=== PATIENT | female | born 1950 | race Two or more races ===

== ENCOUNTER 2022-01-02 10:35 | Inpatient (IN) | payer OTHER ==
[~2022-01-02] VITALS: Ht 154.9 cm; Wt 64.4 kg
[2022-01-03] MEDS ORDERED: ZANAF PO (15:20)
[2022-01-03] MEDS ORDERED: DEPAKOTE ER500 MG PO (15:20)
[2022-01-03] MEDS ORDERED: ZANAFLEX4 M1 PO (15:21)
[2022-01-03] MEDS ORDERED: GABAPEN PO (15:21)
[2022-01-03] MEDS ORDERED: JANUVIA100 MG PO (15:22)
[2022-01-03] MEDS ORDERED: CRESTOR40 MG PO (15:22)
[2022-01-03] MEDS ORDERED: ACCUPRIL10 MG PO (15:22)
[2022-01-03] MEDS ORDERED: FOLIC A PO (15:23)
[2022-01-05] MEDS ORDERED: COLACE100 MG PO (07:54)
[2022-01-05] MEDS ORDERED: MEDROLPACK PO (07:54)
[2022-01-05] MEDS ORDERED: PERCOCET 5-3251 EACH PO (07:54)
== END 2022-01-06 11:29 | disposition home or self-care (01) | DRG 473 ==
LOC: O/R 01-05 05:21 → PED 01-05 05:21 → PICU 01-05 11:45 → SURH 01-05 11:45 → PED 01-06 11:29
PROVIDERS: ADMIT Orthopaedic Surgery Orthopaedic Surgery of the Spine; ATTEND Orthopaedic Surgery Orthopaedic Surgery of the Spine
PROC: 0RT30ZZ Resection of Cervical Vertebral Disc, Open Approach (ICD-10-PCS; 2022-01-05)
PROC: 0RG20A0 Fusion of 2 or more Cervical Vertebral Joints with Interbody Fusion Device, Anterior Approach, Anterior Column, Open Approach (ICD-10-PCS; principal; 2022-01-05 18:15)
DX: M50.022 Cervical disc disorder at C5-C6 level with myelopathy (principal); M48.02 Spinal stenosis, cervical region; I10 Essential (primary) hypertension

== ENCOUNTER 2023-07-04 13:10 | Inpatient (IN) | payer OTHER ==
[~2023-07-04 13:10] MED LIST: ACCUPRIL10 MG PO; COLACE100 MG PO; CRESTOR40 MG PO; DEPAKOTE ER500 MG PO; FOLIC A PO; GABAPEN PO; JANUVIA100 MG PO; MEDROLPACK PO; PERCOCET 5-3251 EACH PO; ZANAF PO; ZANAFLEX4 M1 PO
[2023-07-04] MEDS ORDERED: XANAX (14:26)
[2023-07-04] MEDS ORDERED: DEPAKOTE (14:26)
[2023-07-04] MEDS ORDERED: JANUVIA (14:26)
[2023-07-04] MEDS ORDERED: TOPROL (14:27)
[2023-07-04] MEDS ORDERED: PERCOCET (14:27)
[2023-07-04] MEDS ORDERED: SYNTHROID (14:27)
[2023-07-09] MEDS ORDERED: AMOX-CLAV 875-1 EACH PO ×2 (07:44)
[2023-07-09] MEDS ORDERED: PERCOCET 5-3251 EACH PO (07:44)
[2023-07-09] MEDS ORDERED: MEDROLPACK PO (07:44)
[2023-07-09] MEDS ORDERED: COLACE100 MG PO (07:45)
[2023-07-09] MEDS ORDERED: NEURONTIN800 MG PO ×2 (07:45)
[2023-07-09] MEDS ORDERED: ENALAPRILAT DIHYDRATE 1.25 MG/ML VIAL IV PRN (07:45)
[2023-07-09] MEDS ORDERED: 0.9 % SODIUM CHLORIDE 1,000 ML IV SCH (07:45)
[2023-07-09] MEDS ORDERED: PROMETHAZINE HCL 50 MG/ML AMPUL IM PRN (07:45)
[2023-07-09] MEDS ORDERED: GABAPENTIN100 M2 PO ×2 (07:45)
[2023-07-09] MEDS ORDERED: MORPHINE SULFATE 4 MG,MORPHINE SULFATE 2 MG IV SCH (09:00)
[2023-07-09] MEDS ORDERED: DOCUSATE SODIUM 100MG CAP PO SCH (09:00)
[2023-07-09] MEDS ORDERED: FAMOtidine 20 MG TABLET PO SCH (09:00)
[2023-07-09] MEDS ORDERED: METHYLPREDNISOLONE SOD SUCC 125 MG VIAL IV SCH (09:00)
[2023-07-09] MEDS ORDERED: CEFAZOLIN SODIUM 1,000 MG in 0.9 % SODIUM CHLORIDE 50 ML IV SCH (09:00)
[2023-07-09] MEDS ORDERED: VANCOMYCIN HCL 1,000 MG VIAL IV SCH (09:00)
[2023-07-09] MEDS ORDERED: CEFAZOLIN SODIUM 1,000 MG VIAL ONE ×2 (11:50→16:36)
[2023-07-09] MEDS ORDERED: VANCOMYCIN HCL 1,000 MG VIAL ONE ×2 (11:51→12:42)
[2023-07-09] MEDS ORDERED: METHYLPREDNISOLONE SOD SUCC 125 MG VIAL ONE ×2 (12:41→16:36)
[2023-07-09] MEDS ORDERED: METHYLPREDNISOLONE ACETATE 80 MG/ML VIAL ONE ×2 (12:42→13:36)
[2023-07-09] MEDS ORDERED: METHYLPREDNISOLONE SOD SUCC 125 MG VIAL IV ONE ×2 (14:00)
[2023-07-09] MEDS ORDERED: CEFAZOLIN SODIUM 1,000 MG VIAL IV ONE (14:00)
[2023-07-09] MEDS ORDERED: VANCOMYCIN HCL 1,000 MG VIAL IV ONE ×2 (14:00)
[2023-07-09] MEDS ORDERED: METHYLPREDNISOLONE ACETATE 80 MG/ML VIAL IJ ONE ×2 (14:00)
[2023-07-09] MEDS ORDERED: GABAPENTIN 800 MG TABLET PO SCH (21:00)
[2023-07-10] MEDS ORDERED: SODIUM CHLORIDE 0.45 % 1,000 ML IV SCH
[2023-07-10] MEDS ORDERED: LEVOTHYROXINE SODIUM 50 MCG TABLET PO SCH (06:00)
[2023-07-10] MEDS ORDERED: OxyCODONE HCL/APAP UD (PERCOCET) PO PRN (06:01)
[2023-07-10 06:34] LABS: HEMATOCRIT 36.9 % (36.0-45.00); HEMOGLOBIN 12.8 g/dL (12.0-15.00); MEAN CELL VOLUME 89.8 fL (80.00-100.00); MEAN CORPUSCULAR HEMOGLOBIN 31.2 pg (27.00-32.0); MEAN CORPUSCULAR HGB CONC 34.7 g/dl (32.0-36.0); PLATELET COUNT 185 K/uL (150-450); RED BLOOD COUNT 4.11 M/uL (4.00-6.00); RED CELL DISTRIBUTION WIDTH 13.5 % (11.5-14.5)
[2023-07-10 07:29] LABS: CALCIUM 8.7 mg/dL (8.5-10.1); CREATININE SERUM 0.7 mg/dL (0.55-1.02); GFR 82.25; POTASSIUM 4.04 mEq/L (3.5-5.1)
[2023-07-10] MEDS ORDERED: DIVALPROEX SODIUM 250 MG TABLET.DR PO SCH (09:00)
[2023-07-10] MEDS ORDERED: METOPROLOL SUCCINATE 50 MG TAB.SR.24H PO SCH (09:00)
[2023-07-10] MEDS ORDERED: TAMSULOSIN HCL 0.4 MG CAP PO SCH (09:00)
[2023-07-10] MEDS ORDERED: LOSARTAN POTASSIUM 25 MG TABLET PO SCH (09:00)
[2023-07-10] MEDS ORDERED: TRAZODONE HCL 50 MG TABLET PO SCH (21:00)
[2023-07-16] MEDS ORDERED: ZESTRIL5 MG PO (16:07)
[2023-07-16] MEDS ORDERED: ACETAMINOPHEN500 M1 PO (16:08)
[2023-07-16] MEDS ORDERED: RAYOS5 MG PO (16:09)
[2023-07-16] MEDS ORDERED: ZANAFLEX4 M1 PO (16:11)
[2023-07-16] MEDS ORDERED: CRESTOR40 MG PO (16:16)
== END 2023-07-11 15:31 | DRG 455 ==
LOC: O/R 07-09 08:43 → SURH 07-09 13:09 → SURG 07-09 15:56 → SURH 07-09 17:25
PROVIDERS: ADMIT Orthopaedic Surgery Orthopaedic Surgery of the Spine; ATTEND Orthopaedic Surgery Orthopaedic Surgery of the Spine
PROC: 0SG1071 Fusion of 2 or more Lumbar Vertebral Joints with Autologous Tissue Substitute, Posterior Approach, Posterior Column, Open Approach (ICD-10-PCS; 2023-07-09)
PROC: 0ST20ZZ Resection of Lumbar Vertebral Disc, Open Approach (ICD-10-PCS; 2023-07-09)
PROC: 0QB30ZZ Excision of Left Pelvic Bone, Open Approach (ICD-10-PCS; 2023-07-09)
PROC: 07DR0ZZ Extraction of Iliac Bone Marrow, Open Approach (ICD-10-PCS; 2023-07-09)
PROC: 4A1104G Monitoring of Peripheral Nervous Electrical Activity, Intraoperative, Open Approach (ICD-10-PCS; 2023-07-09)
PROC: 4A12X4Z Monitoring of Cardiac Electrical Activity, External Approach (ICD-10-PCS; 2023-07-09)
PROC: XRGC0R7 Fusion of 2 or more Lumbar Vertebral Joints using Custom-Made Anatomically Designed Interbody Fusion Device, Open Approach, New Technology Group 7 (ICD-10-PCS; principal; 2023-07-09 13:30)
DX: M43.16 Spondylolisthesis, lumbar region (principal); M48.062 Spinal stenosis, lumbar region with neurogenic claudication; I10 Essential (primary) hypertension; E11.9 Type 2 diabetes mellitus without complications; E03.9 Hypothyroidism, unspecified

== ENCOUNTER → 2023-07-16 | Emergency (ER) | payer OTHER ==
[~2023-07-16] VITALS: Ht 154.9 cm; Wt 68.9 kg
[~2023-07-16] MED LIST changes: +ACETAMINOPHEN500 M1 PO; +AMOX-CLAV 875-1 EACH PO; +DEPAKOTE; +GABAPENTIN100 M2 PO; +JANUVIA; +NEURONTIN800 MG PO; +OxyCODONE HCL/APAP UD (PERCOCET) PO ONE; +PERCOCET; +RAYOS5 MG PO; +SYNTHROID; +TOPROL; +XANAX; +ZESTRIL5 MG PO
[2023-07-16 16:13] LABS: HEMATOCRIT 35.8 % (36.0-45.00); HEMOGLOBIN 11.8 g/dL (12.0-15.00); MEAN CORPUSCULAR HEMOGLOBIN 30.1 pg (27.00-32.0); MEAN CORPUSCULAR HGB CONC 33.1 g/dl (32.0-36.0); PLATELET COUNT 203 K/uL (150-450); RED BLOOD COUNT 3.93 M/uL (4.00-6.00); RED CELL DISTRIBUTION WIDTH 13.7 % (11.5-14.5)
[2023-07-16 16:39] LABS: URINE APPEARANCE Clear; URINE BILIRRUBIN Negative (NEGATIVE); URINE BLOOD Negative; URINE COLOR Yellow; URINE GLUCOSE Negative (NEGATIVE); URINE LEUKOCYTE Negative; URINE NITRATE Negative; URINE PROTEIN Negative (NEGATIVE)
[2023-07-16 16:43] LABS: URINE RBC 28.8 uL (0.0-20.8); URINE WBC 1.8 uL (0.0-23.2)
[2023-07-16 16:47] LABS: ALBUMIN 2.9 gm/dL (3.4-5.0); BILIRUBIN TOTAL 0.4 mg/dL (0.3-1.2); CREATININE SERUM 0.82 mg/dL (0.55-1.02); GFR 68.53; POTASSIUM 4.9 mEq/L (3.5-5.1); TOTAL PROTEIN 6.9 gm/dL (6.4-8.2)
[2023-07-16 17:06] LABS: URINE BACTERIA 3.7 uL (0.0-1933); URINE EPITHELIAL CELLS 1.3 uL (0.0-38.8)
== END | disposition left against medical advice (07) ==
LOC: ER 14:35
PROVIDERS: General Practice
DX: G45.8 Other transient cerebral ischemic attacks and related syndromes (principal); R41.0 Disorientation, unspecified; I10 Essential (primary) hypertension; E11.9 Type 2 diabetes mellitus without complications; Z91.048 Other nonmedicinal substance allergy status; Z79.84 Long term (current) use of oral hypoglycemic drugs

== ENCOUNTER 2023-07-19 10:56 | Inpatient (IN) | payer OTHER ==
[~2023-07-19] VITALS: Ht 154.9 cm; Wt 68.9 kg
[~2023-07-19 10:56] MED LIST changes: -OxyCODONE HCL/APAP UD (PERCOCET) PO ONE
[2023-07-19] MEDS ORDERED: GABAPENTIN800 M1 (11:11)
[2023-07-19 12:54] LABS: HEMOGLOBIN 12.2 g/dL (12.0-15.00); MEAN CELL VOLUME 91.1 fL (80.00-100.00); MEAN CORPUSCULAR HEMOGLOBIN 30.9 pg (27.00-32.0); MEAN CORPUSCULAR HGB CONC 33.9 g/dl (32.0-36.0); PLATELET COUNT 204 K/uL (150-450); RED BLOOD COUNT 3.95 M/uL (4.00-6.00); RED CELL DISTRIBUTION WIDTH 13.9 % (11.5-14.5)
[2023-07-19 13:26] LABS: proBNP 9 pg/mL (0-106.6)
[2023-07-19 13:27] LABS: TROPONIN I hs < 3.0 PG/ML (42.2-82.3)
[2023-07-19 13:28] LABS: ALBUMIN 3.1 gm/dL (3.4-5.0); BILIRUBIN TOTAL 0.54 mg/dL (0.3-1.2); CALCIUM 8.9 mg/dL (8.5-10.1); CREATININE SERUM 0.72 mg/dL (0.55-1.02); GFR 79.4; GLOBULINA 3.9 G/DL (2.4-3.5); POTASSIUM 4.01 mEq/L (3.5-5.1)
[2023-07-19 15:07] LABS: PH,URINE 7.5 (5.0-8.0); URINE APPEARANCE Turbid; URINE BILIRRUBIN Negative (NEGATIVE); URINE BLOOD Small; URINE COLOR Yellow; URINE GLUCOSE Negative (NEGATIVE); URINE LEUKOCYTE Large; URINE NITRATE Positive; URINE PROTEIN 30 (NEGATIVE); URINE UROBILINOGEN 0.2 E.U./dl
[2023-07-19 15:11] LABS: URINE EPITHELIAL CELLS 3.4 uL (0.0-38.8); URINE RBC 28.1 uL (0.0-20.8)
[2023-07-19 15:31] LABS: URINE WBC > 5548.3 uL (0.0-23.2)
[2023-07-19 15:32] LABS: URINE BACTERIA > 9821.2 uL (0.0-1933)
[2023-07-19] MEDS ORDERED: OxyCODONE HCL/APAP UD (PERCOCET) PO ONE (17:15)
[2023-07-19] MEDS ORDERED: CEFTRIAXONE SODIUM 2,000 MG VIAL IV ONE (17:15)
[2023-07-19] MEDS ORDERED: 0.9 % SODIUM CHLORIDE 1,000 ML IV SCH (18:45)
[2023-07-19] MEDS ORDERED: ACETAMINOPHEN 500 MG GEL..CAP PO PRN (18:45)
[2023-07-19] MEDS ORDERED: ONDANSETRON HCL 4 MG in 0.9 % SODIUM CHLORIDE 50 ML IV PRN (18:45)
[2023-07-19 19:33] LABS: INR < 0.93; PARTIAL THROMBOPLASTIN TIME 26.4 SECONDS (22.0-34.0); PROTHROMBIN TIME 9.8 SECONDS (9.0-11.5)
[2023-07-19] MEDS ORDERED: TRAZODONE HCL 50 MG TABLET PO SCH (21:00)
[2023-07-19] MEDS ORDERED: ALPRAzolam 0.5 MG TABLET PO SCH (21:00)
[2023-07-20] MEDS ORDERED: ENALAPRILAT DIHYDRATE 1.25 MG/ML VIAL IV SCH
[2023-07-20] MEDS ORDERED: LEVOTHYROXINE SODIUM 100 MCG TABLET PO SCH (06:00)
[2023-07-20] MEDS ORDERED: DIVALPROEX SODIUM 500 MG TABLET.DR PO SCH (09:00)
[2023-07-20] MEDS ORDERED: CEFTRIAXONE SODIUM 2,000 MG in 0.9 % SODIUM CHLORIDE 100 ML IV SCH (09:00)
[2023-07-20] MEDS ORDERED: ENOXAPARIN SODIUM 40 MG/0.4 ML SYRINGE SUBCUTANEO SCH (09:00)
[2023-07-20] MEDS ORDERED: FAMOTIDINE/PF 20 MG in 0.9 % SODIUM CHLORIDE 8 ML IV PUSH SCH (09:00)
[2023-07-20] MEDS ORDERED: LACTOBACILLUS ACIDOPHILUS 1 CAP CAP PO SCH (17:00)
[2023-07-20] MEDS ORDERED: VANCOMYCIN HCL 1,000 MG VIAL IV SCH (17:00)
[2023-07-20] MEDS ORDERED: OxyCODONE HCL/APAP UD (PERCOCET) PO STA (17:40)
[2023-07-20] MEDS ORDERED: OxyCODONE HCL/APAP UD (PERCOCET) PO PRN (17:45)
[2023-07-21 07:39] LABS: HEMATOCRIT 31.4 % (36.0-45.00); HEMOGLOBIN 10.8 g/dL (12.0-15.00); MEAN CORPUSCULAR HEMOGLOBIN 30.8 pg (27.00-32.0); MEAN CORPUSCULAR HGB CONC 34.2 g/dl (32.0-36.0); PLATELET COUNT 170 K/uL (150-450); RED BLOOD COUNT 3.49 M/uL (4.00-6.00); RED CELL DISTRIBUTION WIDTH 13.7 % (11.5-14.5)
[2023-07-21 08:38] LABS: ALBUMIN 2.8 gm/dL (3.4-5.0); BILIRUBIN TOTAL 0.27 mg/dL (0.3-1.2); CALCIUM 8.7 mg/dL (8.5-10.1); CREATININE SERUM 0.64 mg/dL (0.55-1.02); GFR 90.96; GLOBULINA 3.2 G/DL (2.4-3.5); MAGNESIUM 1.9 mg/dL (1.8-2.4); PHOSPHOROUS 3.6 mg/dL (2.5-4.9); POTASSIUM 3.88 mEq/L (3.5-5.1)
[2023-07-21 08:42] LABS: C-REACTIVE PROTEIN 2.05 MG/DL (0.00-0.29)
[2023-07-21 10:16] LABS: MYCOPLASMA PNEUMONIAE IGM NON REACTIVE (NO REACTIVE)
[2023-07-22 09:26] LABS: URINE APPEARANCE Clear; URINE BILIRRUBIN Negative (NEGATIVE); URINE BLOOD Moderate; URINE COLOR Yellow; URINE GLUCOSE Negative (NEGATIVE); URINE LEUKOCYTE Trace; URINE NITRATE Negative; URINE PROTEIN Negative (NEGATIVE); URINE UROBILINOGEN 0.2 E.U./dl
[2023-07-22 09:28] LABS: URINE BACTERIA 22.6 uL (0.0-1933); URINE EPITHELIAL CELLS 2.7 uL (0.0-38.8); URINE RBC 205.7 uL (0.0-20.8); URINE WBC 55.6 uL (0.0-23.2)
[2023-07-23] MEDS ORDERED: LEVALBUTEROL HCL 0.63 MG/3 ML SOLUTION IH ONE (08:17)
[2023-07-23] MEDS ORDERED: IPRATROPIUM BROMIDE 0.5 MG/2.5 ML AMPUL.NEB IH SCH (09:00)
[2023-07-23 09:02] LABS: ABG PH 7.386 (7.35-7.45); ABG PO2 139.4 mmHg (80-100); ABG pCO2 44.9 mmHg (35-45); BASE EXCESS 0.9 mmol/l; BICARBONATE 26.4 mmol/l (23-25); SaO2 99.1 %; Tco2 27.7 mmol/l; o2 21 %; puncture site RADIAL RIGHT
[2023-07-23 09:03] LABS: allen test SATISFACTORY
[2023-07-23] MEDS ORDERED: BUDESONIDE 0.5 MG/2 ML AMPUL.NEB IH SCH ×2 (10:00→21:00)
[2023-07-23 11:15] LABS: PROCALCITONIN 0.042 ng/ml (0.020-0.080)
[2023-07-23 13:21] LABS: CORTISOL 2.97 ug/dl
[2023-07-23] MEDS ORDERED: FAMOtidine 20 MG TABLET PO SCH (21:00)
[2023-07-24 07:11] LABS: ALBUMIN 2.6 gm/dL (3.4-5.0); BILIRUBIN TOTAL 0.23 mg/dL (0.3-1.2); CALCIUM 8.4 mg/dL (8.5-10.1); CREATININE SERUM 0.5 mg/dL (0.55-1.02); GFR 120.94; GLOBULINA 3.3 G/DL (2.4-3.5); MAGNESIUM 1.6 mg/dL (1.8-2.4); PHOSPHOROUS 4.1 mg/dL (2.5-4.9); POTASSIUM 4.62 mEq/L (3.5-5.1); TOTAL PROTEIN 5.9 gm/dL (6.4-8.2)
[2023-07-24 07:14] LABS: C-REACTIVE PROTEIN 1.51 MG/DL (0.00-0.29)
[2023-07-24 09:56] LABS: HEMATOCRIT 31.2 % (36.0-45.00); HEMOGLOBIN 10.6 g/dL (12.0-15.00); MEAN CELL VOLUME 90.9 fL (80.00-100.00); MEAN CORPUSCULAR HEMOGLOBIN 30.8 pg (27.00-32.0); MEAN CORPUSCULAR HGB CONC 33.9 g/dl (32.0-36.0); PLATELET COUNT 153 K/uL (150-450); RED BLOOD COUNT 3.43 M/uL (4.00-6.00); RED CELL DISTRIBUTION WIDTH 13.7 % (11.5-14.5)
[2023-07-25] MEDS ORDERED: GUAIFENESIN/DEXTROMETHORPHAN 100 MG/5 ML ML PO SCH (15:54)
[2023-07-27 16:17] LABS: URINE APPEARANCE Clear; URINE BILIRRUBIN Negative (NEGATIVE); URINE BLOOD Small; URINE COLOR Yellow; URINE GLUCOSE Negative (NEGATIVE); URINE LEUKOCYTE Trace; URINE NITRATE Negative; URINE PROTEIN Negative (NEGATIVE); URINE UROBILINOGEN 0.2 E.U./dl
[2023-07-27 16:18] LABS: URINE BACTERIA 15.1 uL (0.0-1933); URINE WBC 17.7 uL (0.0-23.2)
[2023-07-27 16:23] LABS: URINE EPITHELIAL CELLS 0.6 uL (0.0-38.8)
[2023-07-27] MEDS ORDERED: PHENAZOPYRIDINE HCL 100 MG TABLET PO SCH (17:00)
[2023-07-28 08:53] LABS: HEMATOCRIT 30.5 % (36.0-45.00); HEMOGLOBIN 10.4 g/dL (12.0-15.00); MEAN CELL VOLUME 90.3 fL (80.00-100.00); MEAN CORPUSCULAR HEMOGLOBIN 30.7 pg (27.00-32.0); PLATELET COUNT 212 K/uL (150-450); RED BLOOD COUNT 3.38 M/uL (4.00-6.00); RED CELL DISTRIBUTION WIDTH 14.4 % (11.5-14.5)
[2023-07-28 09:11] LABS: ALBUMIN 2.7 gm/dL (3.4-5.0); BILIRUBIN TOTAL 0.24 mg/dL (0.3-1.2); CALCIUM 8.7 mg/dL (8.5-10.1); CREATININE SERUM 0.69 mg/dL (0.55-1.02); GFR 83.4; GLOBULINA 3.6 G/DL (2.4-3.5); MAGNESIUM 1.8 mg/dL (1.8-2.4); PHOSPHOROUS 3.9 mg/dL (2.5-4.9); POTASSIUM 3.99 mEq/L (3.5-5.1); TOTAL PROTEIN 6.3 gm/dL (6.4-8.2)
[2023-07-28 09:13] LABS: C-REACTIVE PROTEIN 3.29 MG/DL (0.00-0.29)
[2023-07-29] MEDS ORDERED: OxyCODONE HCL/APAP UD (PERCOCET) PO PRN (13:15)
== END 2023-07-31 10:55 | disposition home or self-care (01) | DRG 872 ==
LOC: ER 10:56 → MEDJ 19:00
PROVIDERS: Emergency Medicine; General Practice; Internal Medicine Infectious Disease; ADMIT Internal Medicine; ATTEND Internal Medicine
PROC: 4A12X4Z Monitoring of Cardiac Electrical Activity, External Approach (ICD-10-PCS; 2023-07-19)
PROC: B246ZZZ Ultrasonography of Right and Left Heart (ICD-10-PCS; principal; 2023-07-20)
PROC: 3E0F7GC Introduction of Other Therapeutic Substance into Respiratory Tract, Via Natural or Artificial Opening (ICD-10-PCS; 2023-07-23)
DX: A41.9 Sepsis, unspecified organism (principal); N39.0 Urinary tract infection, site not specified; N32.89 Other specified disorders of bladder; B96.1 Klebsiella pneumoniae [K. pneumoniae] as the cause of diseases classified elsewhere; B96.4 Proteus (mirabilis) (morganii) as the cause of diseases classified elsewhere; G30.8 Other Alzheimer's disease; F02.80 Dementia in other diseases classified elsewhere, unspecified severity, without behavioral disturbance, psychotic disturbance, mood disturbance, and anxiety; I10 Essential (primary) hypertension; E11.9 Type 2 diabetes mellitus without complications; Z79.84 Long term (current) use of oral hypoglycemic drugs; Z98.1 Arthrodesis status; R05.9 Cough, unspecified